=== PATIENT | male | born 1935 | race Caucasian/White ===

== ENCOUNTER 2025-06-16 18:18 | Inpatient (IN) ==
--- NOTE | 2025-06-16 18:47 | Emergency Department Note ---
Impression & Plan Sepsis, Common bile duct dilatation, Intrahepatic bile duct dilation, Transaminitis, Acidosis, lactic ED Provider Note NAME: SULAIMAN MAKI AGE: 89 SEX: M : 1935 ARRIVES VIA: Ambulance INFORMANT: Patient, EMS, family ED PROVIDER(S): Alvin Taylor DO CHIEF COMPLAINT: abdominal pain HPI: This is a 89-year-old male with the PMHx of HTN, HLD and cholecystectomy with ongoing "liver issues" and multiple admissions in [place] as well as the OR presenting to [facility] for further evaluation of abdominal pain. Patient is accompanied by EMS and family who provide additional history. EMS reported that he has issues with his liver. They report that his presentation is similar. The patient also agrees with this. He was managed with the 100 mcg of IV fentanyl for pain control prior to arrival. He was reporting some improvement but still having intermittent nausea as well as abdominal pain. Patient reports significant chills but no documented fevers. Having episodes of shaking which seem to be rigors during interview. No cough or congestion. Denies chest pain or palpitations. No shortness of breath. They deny abdominal pain, nausea and vomiting. No urinary complaints. No recent changes in bowel movements. Patient denies recent changes in medications or OTC supplements. Patient offers no other complaints, today. ADDITIONAL HISTORY OBTAINED: Per HPI Chronic Medical/Social Conditions Affecting Care: Per HPI PAST MEDICAL HISTORY: See Below PAST SURGICAL HISTORY: See Below FAMILY HISTORY: See Below SOCIAL HISTORY: See Below HOME MEDICATIONS: See Below ALLERGIES: See Below VITALS: See Below PHYSICAL EXAMINATION: GENERAL: Sitting up in bed, alert, ill appearing, rigors present, well nourished, no distress, non-toxic EYE EXAM: normal conjunctiva. PERRL and EOM's grossly intact. OROPHARYNX: no exudate, no erythema, lips, buccal mucosa, and tongue normal and mucous membranes are dry NECK: supple, no nuchal rigidity, no adenopathy, non-tender LUNGS: Clear to auscultation. Normal chest wall mechanics HEART: no murmurs, tachycardic rate, regular rhythm ABDOMEN: abdomen soft, generalized TTP, most severe in the RUQ, no masses, no rebound or guarding. BACK: Back is symmetrical on inspection and there is no deformity, no midline tenderness, no CVA tenderness. SKIN: no rashes and no bruising UPPER EXTREMITIES: upper extremities are grossly normal. LOWER EXTREMITIES: No pitting edema. NEURO EXAM: Normal sensorium, GCS 15, normal speech, no gross weakness of arms, no gross weakness of legs. MEDICAL DECISION MAKING: Differential diagnoses includes but not limited to sepsis, bacteremia, hepatobiliary disease, cholangitis, liver cirrhosis, choledocholithiasis, obstructing nephrolithiasis, complicated UTI, viral URI, pneumonia, electrolyte derangements, SBP, kidney dysfunction In summary, this is a 89 year old male who presented with abdominal pain. Differential as above. Nursing notes and pertinent past medical records reviewed. Vital signs reviewed and the patient is tachycardic and tachypneic but otherwise afebrile and HDS. Concern for rigors on presentation. History and presentation revealed ongoing right upper quadrant abdominal pain in the setting of a cholecystectomy and ongoing liver issues per the patient and his family members. I did touch base with our ammunition officer to schedule work on obtaining records from the OR. Patient previously followed in [place] for initial hepatic issues. Did have a cholecystectomy. Patient states has had similar episodes in the past that were related to his liver issues. Physical examination revealed RUQ TTP but no evidence of AMS or jaundice. As a result of my initial evaluation, []. Will begin IV fluid resuscitation, broad-spectrum antibiotics and pain control. Patient was given initial dose of 4 mg of IV push morphine. I am concerned for sepsis given patient's vital signs and active rigors on physical examination. Will begin with a CT abdomen/pelvis but may benefit from right upper quadrant ultrasound for further characterization. Patient could have choledocholithiasis or cholangitis. He could have liver cirrhosis that we are unaware of. Patient does not appear jaundice. He does not have respiratory symptoms. No urinary symptoms. Find no findings of a soft tissue infection on physical examination. Unclear source at this time of possible sepsis but felt to be most likely hepatobiliary in nature. Diagnostics interpreted by me include EKG and cardiac monitoring as listed below: -Cardiac Monitoring: An order was placed for continuous cardiac monitoring. The monitor shows a rate of 90-120s with regular rhythm. -ECG: EKG independently interpreted by me reveals a narrow complex tachycardia in the 110 bpm. There is a poor baseline. Could be normal sinus but difficult to discern P waves. There are no significant ST segment changes to suggest STEMI. Patient completed laboratory studies and imaging. Results independently interpreted by me are transaminitis with elevated total bilirubin. Lipase was normal. No significant leukocytosis. Lactate is elevated but could be related to sepsis or poor clearance due to liver dysfunction. Some blood on UA but no bacteruria to suspect complicated UTI. The patient was managed with 1 L of IV fluid resuscitation as well as initially ordered cefepime. Given further concerns for possible hepatobiliary pathology as a source of possible sepsis, I did choose to provide anaerobic coverage and transition the patient from cefepime to Zosyn. CT abdomen/pelvis independently turbid by me reveals common bile duct dilatation with minimal intrahepatic ductal dilatation. RUQ was ordered. Discussed with GI Dr. Draper at 2140 and recommended MRCP and consult tomorrow. On reevaluation, the pain is improved. The patient is sleeping peacefully. He is still tachypneic and tachycardic. I continued IV fluid resuscitation with a second 1 L bolus of Plasma-Lyte. Ultimately, the decision was made to admit the patient for sepsis 2/2 likely hepatobiliary source. I discussed the case with the hospitalist service via telephone/T[employer] and they are agreeable to admit the patient to their services. Based on the above, including the patient's age, coexisting illnesses, labs, imaging, and exam findings the decision to treat as an inpatient. I discussed the patient with the hospitalist team who recommended admission to their services. They received the medications, treatments, interventions indicated above and their condition remained guarded. I discussed my findings with the patient and their family and they understand and agree with the treatment plan. All patient / family questions were answered to their satisfaction. Consults/Care Managements Discussions: Per MDM ER treatment provided: See above Procedures:none Critical Care: None The chart was completed utilizing [employer] voice recognition software. Grammatical errors, random word insertions, pronoun errors, and incomplete sentences are an occasional consequence of this system due to software limitations, ambient noise, and hardware issues. Any formal questions or concerns about the content, text, or information contained within the body of this dictation should be directly addressed to the physician for clarification. Past Med/Surg History Problem List (Updated 06/17/25 @ 17:18 by Alvin Taylor DO) Acidosis, lactic (Acute) Transaminitis (Acute) Intrahepatic bile duct dilation (Acute) Common bile duct dilatation (Acute) Sepsis (Acute) Medical History (Updated 06/17/25 @ 17:18 by Alvin Taylor DO) Encounter for pre-operative examination Common bile duct dilation Transaminitis Dehydration Hypoxia Social History Smoking Status: Never smoker Hx Alcohol Use: No Hx Substance Use: No Preferred Language: Estonian Communication Ability: Effective Improvement Manager Required: No Beliefs That Will Affect Care: None Current Living Situation: Spouse Feels Safe at Home: Yes Safety Concerns: Feels Safe At This Time Assistive Devices: Walker Assistive Devices Comment: braces for both legs, shower chair Allergies Allergies Allergy/AdvReac Type Severity Reaction Status Date / Time No Known Allergies Allergy Unverified 06/17/25 00:31 Home Meds Home Medications Medication Instructions Recorded Confirmed atorvastatin 10 mg tablet 10 mg PO DAILY 06/16/25 06/16/25 olmesartan 20 mg tablet 20 mg PO DAILY 06/16/25 06/16/25 Results & Data (ED) Vital Signs Vital Signs - 24 hr 06/16/25 18:06 06/16/25 18:28 06/16/25 18:28 Temperature 36.6 C Temperature Source Oral Pulse Rate 112 H 112 H 109 H Pulse Rate [Left Finger] Pulse Rate from SpO2 Sensor Pulse Rhythm [Left Finger] Pulse Strength [Left Finger] Respiratory Rate 20 20 Respiratory Effort / Characteristics Respiratory Depth Respiratory Pattern Blood Pressure 109/74 Blood Pressure [Left Arm] Blood Pressure Mean 85 Blood Pressure Mean [Left Arm] Blood Pressure Position Lying Blood Pressure Position [Left Arm] Pulse Oximetry 95 90 Oxygen Delivery Method Room Air Room Air Oxygen Flow Rate Sepsis Recent Fever Within 48 Hours Yes Sepsis New/Unexplained Change in Mental Status N/A Sepsis Action Taken by Nursing No Action Required 06/16/25 18:30 06/16/25 18:30 06/16/25 18:30 Temperature Temperature Source Pulse Rate Pulse Rate [Left Finger] Pulse Rate from SpO2 Sensor Pulse Rhythm [Left Finger] Pulse Strength [Left Finger] Respiratory Rate Respiratory Effort / Characteristics Respiratory Depth Respiratory Pattern Blood Pressure 115/72 115/72 115/72 Blood Pressure [Left Arm] Blood Pressure Mean 91 91 91 Blood Pressure Mean [Left Arm] Blood Pressure Position Blood Pressure Position [Left Arm] Pulse Oximetry Oxygen Delivery Method Oxygen Flow Rate Sepsis Recent Fever Within 48 Hours Sepsis New/Unexplained Change in Mental Status Sepsis Action Taken by Nursing 06/16/25 18:39 06/16/25 18:42 06/16/25 18:54 Temperature Temperature Source Pulse Rate 114 H 117 H 119 H Pulse Rate [Left Finger] Pulse Rate from SpO2 Sensor 117 H 118 H Pulse Rhythm [Left Finger] Pulse Strength [Left Finger] Respiratory Rate 19 24 27 H Respiratory Effort / Characteristics Respiratory Depth Respiratory Pattern Blood Pressure Blood Pressure [Left Arm] Blood Pressure Mean Blood Pressure Mean [Left Arm] Blood Pressure Position Blood Pressure Position [Left Arm] Pulse Oximetry 88 L 83 L Oxygen Delivery Method Oxygen Flow Rate Sepsis Recent Fever Within 48 Hours Sepsis New/Unexplained Change in Mental Status Sepsis Action Taken by Nursing 06/16/25 19:00 06/16/25 19:00 06/16/25 19:18 Temperature Temperature Source Pulse Rate 119 H Pulse Rate [Left Finger] Pulse Rate from SpO2 Sensor 117 H Pulse Rhythm [Left Finger] Pulse Strength [Left Finger] Respiratory Rate 24 Respiratory Effort / Characteristics Respiratory Depth Respiratory Pattern Blood Pressure 102/82 102/82 Blood Pressure [Left Arm] Blood Pressure Mean 88 88 Blood Pressure Mean [Left Arm] Blood Pressure Position Blood Pressure Position [Left Arm] Pulse Oximetry 90 Oxygen Delivery Method Oxygen Flow Rate Sepsis Recent Fever Within 48 Hours Sepsis New/Unexplained Change in Mental Status Sepsis Action Taken by Nursing 06/16/25 19:21 06/16/25 19:33 06/16/25 19:39 Temperature Temperature Source Pulse Rate 116 H 119 H Pulse Rate [Left Finger] Pulse Rate from SpO2 Sensor 119 H Pulse Rhythm [Left Finger] Pulse Strength [Left Finger] Respiratory Rate 23 Respiratory Effort / Characteristics Respiratory Depth Respiratory Pattern Blood Pressure 117/75 Blood Pressure [Left Arm] Blood Pressure Mean 86 Blood Pressure Mean [Left Arm] Blood Pressure Position Blood Pressure Position [Left Arm] Pulse Oximetry 91 Oxygen Delivery Method Oxygen Flow Rate Sepsis Recent Fever Within 48 Hours Sepsis New/Unexplained Change in Mental Status Sepsis Action Taken by Nursing 06/16/25 19:45 06/16/25 20:00 06/16/25 20:18 Temperature Temperature Source Pulse Rate 119 H 122 H Pulse Rate [Left Finger] Pulse Rate from SpO2 Sensor 125 H Pulse Rhythm [Left Finger] Pulse Strength [Left Finger] Respiratory Rate 33 H 22 Respiratory Effort / Characteristics Respiratory Depth Respiratory Pattern Blood Pressure 107/85 Blood Pressure [Left Arm] Blood Pressure Mean 94 Blood Pressure Mean [Left Arm] Blood Pressure Position Blood Pressure Position [Left Arm] Pulse Oximetry 90 Oxygen Delivery Method Oxygen Flow Rate Sepsis Recent Fever Within 48 Hours Sepsis New/Unexplained Change in Mental Status Sepsis Action Taken by Nursing 06/16/25 20:30 06/16/25 20:36 06/16/25 20:51 Temperature Temperature Source Pulse Rate 119 H 120 H Pulse Rate [Left Finger] Pulse Rate from SpO2 Sensor 120 H 119 H Pulse Rhythm [Left Finger] Pulse Strength [Left Finger] Respiratory Rate 19 22 Respiratory Effort / Characteristics Respiratory Depth Respiratory Pattern Blood Pressure 121/79 Blood Pressure [Left Arm] Blood Pressure Mean 92 Blood Pressure Mean [Left Arm] Blood Pressure Position Blood Pressure Position [Left Arm] Pulse Oximetry 91 94 Oxygen Delivery Method Oxygen Flow Rate Sepsis Recent Fever Within 48 Hours Sepsis New/Unexplained Change in Mental Status Sepsis Action Taken by Nursing 06/16/25 21:00 06/16/25 21:00 06/16/25 21:00 Temperature Temperature Source Pulse Rate 120 H Pulse Rate [Left Finger] Pulse Rate from SpO2 Sensor Pulse Rhythm [Left Finger] Pulse Strength [Left Finger] Respiratory Rate 20 Respiratory Effort / Characteristics Respiratory Depth Respiratory Pattern Blood Pressure 134/90 134/90 134/90 Blood Pressure [Left Arm] Blood Pressure Mean 104 104 104 Blood Pressure Mean [Left Arm] Blood Pressure Position Blood Pressure Position [Left Arm] Pulse Oximetry 94 Oxygen Delivery Method Oxygen Flow Rate Sepsis Recent Fever Within 48 Hours Sepsis New/Unexplained Change in Mental Status Sepsis Action Taken by Nursing 06/16/25 22:00 Temperature Temperature Source Oral Pulse Rate Pulse Rate [Left Finger] 110 H Pulse Rate from SpO2 Sensor Pulse Rhythm [Left Finger] Regular Pulse Strength [Left Finger] Normal Respiratory Rate 20 Respiratory Effort / Characteristics Non-Labored Spontaneous Respiratory Depth Normal Respiratory Pattern Regular Blood Pressure Blood Pressure [Left Arm] 144/80 H Blood Pressure Mean Blood Pressure Mean [Left Arm] 101 Blood Pressure Position Blood Pressure Position [Left Arm] Lying Pulse Oximetry 97 Oxygen Delivery Method Nasal Cannula Oxygen Flow Rate 2 Sepsis Recent Fever Within 48 Hours Sepsis New/Unexplained Change in Mental Status Sepsis Action Taken by Nursing Laboratory Data 06/17/25 04:24 06/17/25 04:24 Lab Results 06/16/25 06/16/25 06/16/25 Range/Units 18:20 19:10 19:50 WBC 6.88 (4.8-10.8) K/ul RBC 4.99 (4.70-6.10) M/uL Hgb 14.6 (14.0-18.0) g/dl Hct 45.0 (42.0-52.0) % MCV 90.2 (80.0-100.0) fL MCH 29.3 (25.0-34.0) pg MCHC 32.4 (32.0-36.0) g/dL RDW Std Deviation 42.8 (36.4-46.3) fL RDW Coeff of Balwinder 13.1 (11.5-14.5) % Plt Count 145 (130-400) K/uL MPV 9.6 (9.4-12.4) fL Immature Gran % (Auto) 0.3 % Neut % (Auto) 84.4 % Lymph % (Auto) 7.8 % [place] % (Auto) 6.8 % Eos % (Auto) 0.4 % Baso % (Auto) 0.3 % Neut # (Auto) 5.80 (1.40-6.50) K/uL Lymph # (Auto) 0.54 L (1.20-3.40) K/uL [place] # (Auto) 0.47 (0.11-0.59) K/uL Eos # (Auto) 0.03 (0.00-0.50) K/uL Baso # (Auto) 0.02 (0.00-0.20) K/uL Immature Gran # (Auto) 0.02 (0.01-0.20) K/uL RBC Morphology Unremarkable Sodium 138 (136-145) mmol/L Potassium 4.1 (3.5-5.1) mmol/L Chloride 107 (98-107) mmol/L Carbon Dioxide 26 (21-32) mmol/L Anion Gap 5 (3-11) BUN 20 (6-23) mg/dl Creatinine 0.93 (0.6-1.4) mg/dl Est Cr Clr Drug Dosing 58.5 ml/min eGFR 78.98 BUN/Creatinine Ratio 21.5 H (10-20) Glucose 137 H (70-99(Fasting)) mg/dl Lactate 3.9 H* (0.4-2.0) mmol/L Calcium 9.3 (8.6-10.3) mg/dl Total Bilirubin 1.9 H (0.2-1.0) mg/dl AST 613 H (13-39) U/L ALT 362 H (7-52) U/L Alkaline Phosphatase 153 H (34-104) U/L Troponin I High Sens 6.2 (0-20) pg/ml Total Protein 5.9 L (6.0-8.3) gm/dl Albumin 3.6 (3.4-5.0) gm/dl Globulin 2.3 L (2.5-4.0) gm/dl Albumin/Globulin Ratio 1.6 (0.9-2) Lipase 14 (11-82) U/L Procalcitonin 0.12 (0-0.5) ng/ml Urine Color Urine Appearance (Clear) Urine pH (4.5-7.5) Ur Specific Draper (1.000-1.030) Urine Protein (Negative) Urine Glucose (UA) (Negative) Urine Ketones (Negative) Urine Blood (Negative) Urine Nitrite (Negative) Urine Bilirubin (Negative) Urine Urobilinogen (Negative) Ur Leukocyte Esterase (Negative) Urine RBC (0-2) /hpf Urine WBC (0-5) /hpf Ur Epithelial Cells (0-2) /hpf Urine Bacteria (None Seen) Hyaline Casts (None Presnt) /lpf Urine Comment Anaplasma Smear See Comment Babesia Smear See Comment 06/16/25 Range/Units 22:05 WBC (4.8-10.8) K/ul RBC (4.70-6.10) M/uL Hgb (14.0-18.0) g/dl Hct (42.0-52.0) % MCV (80.0-100.0) fL MCH (25.0-34.0) pg MCHC (32.0-36.0) g/dL RDW Std Deviation (36.4-46.3) fL RDW Coeff of Balwinder (11.5-14.5) % Plt Count (130-400) K/uL MPV (9.4-12.4) fL Immature Gran % (Auto) % Neut % (Auto) % Lymph % (Auto) % [place] % (Auto) % Eos % (Auto) % Baso % (Auto) % Neut # (Auto) (1.40-6.50) K/uL Lymph # (Auto) (1.20-3.40) K/uL [place] # (Auto) (0.11-0.59) K/uL Eos # (Auto) (0.00-0.50) K/uL Baso # (Auto) (0.00-0.20) K/uL Immature Gran # (Auto) (0.01-0.20) K/uL RBC Morphology Sodium (136-145) mmol/L Potassium (3.5-5.1) mmol/L Chloride (98-107) mmol/L Carbon Dioxide (21-32) mmol/L Anion Gap (3-11) BUN (6-23) mg/dl Creatinine (0.6-1.4) mg/dl Est Cr Clr Drug Dosing ml/min eGFR BUN/Creatinine Ratio (10-20) Glucose (70-99(Fasting)) mg/dl Lactate 3.2 H* (0.4-2.0) mmol/L Calcium (8.6-10.3) mg/dl Total Bilirubin (0.2-1.0) mg/dl AST (13-39) U/L ALT (7-52) U/L Alkaline Phosphatase (34-104) U/L Troponin I High Sens (0-20) pg/ml Total Protein (6.0-8.3) gm/dl Albumin (3.4-5.0) gm/dl Globulin (2.5-4.0) gm/dl Albumin/Globulin Ratio (0.9-2) Lipase (11-82) U/L Procalcitonin (0-0.5) ng/ml Urine Color Yellow Urine Appearance Clear (Clear) Urine pH 6.0 (4.5-7.5) Ur Specific Draper 1.010 (1.000-1.030) Urine Protein Negative (Negative) Urine Glucose (UA) Negative (Negative) Urine Ketones Negative (Negative) Urine Blood 3+ H (Negative) Urine Nitrite Negative (Negative) Urine Bilirubin Negative (Negative) Urine Urobilinogen Negative (Negative) Ur Leukocyte Esterase Negative (Negative) Urine RBC 11-20 H (0-2) /hpf Urine WBC 0-5 (0-5) /hpf Ur Epithelial Cells 0-2 (0-2) /hpf Urine Bacteria None Seen (None Seen) Hyaline Casts Present A (None Presnt) /lpf Urine Comment Anaplasma Smear Babesia Smear Administered Medications Aspirin (Aspirin 81 Mg Ectab) 81 mg PO DAILY [facility] Stop: 07/17/25 08:59 Last Admin: 06/17/25 07:46 Dose: 81 mg Documented By: SELIN Lactated Ringer's (Lr) 1,000 mls @ 100 mls/hr IV .Q10H JACOBY Stop: 06/17/25 18:14 Last Admin: 06/17/25 07:49 Dose: 100 mls/hr Documented By: Infusion: 06/17/25 07:49 Dose: Infused Documented By: Admin: 06/17/25 00:35 Dose: 100 mls/hr Documented By: JONES Piperacillin Sod/Tazobactam Sod (Zosyn) 4.5 gm in 100 mls @ 25 mls/hr IV Q8H [facility]; Protocol Stop: 06/27/25 12:59 Last Infusion: 06/17/25 16:45 Dose: Infused Documented By: Admin: 06/17/25 12:42 Dose: 25 mls/hr Documented By: SELIN Losartan Potassium (Losartan Potassium 50 Mg Tab) 50 mg PO DAILY [facility] Stop: 07/17/25 08:59 Last Admin: 06/17/25 07:47 Dose: 50 mg Documented By: SELIN Discontinued Medications Sodium Chloride (Nss) 500 mls @ 999 mls/hr IV .Q31M STA Stop: 06/16/25 18:58 Last Infusion: 06/16/25 19:28 Dose: Infused Documented By: Admin: 06/16/25 18:53 Dose: 999 mls/hr Documented By: LUZ Cefepime HCl (Maxipime 2000mg) 2,000 mg in 20 mls @ 5 mls/min IV NOW STA; Protocol Stop: 06/16/25 19:33 Last Admin: 06/16/25 19:50 Dose: Not Given Documented By: LUZ Piperacillin Sod/Tazobactam Sod (Zosyn) 4.5 gm in 100 mls @ 200 mls/hr IV NOW ONE; Protocol Stop: 06/16/25 20:01 Last Infusion: 06/17/25 02:02 Dose: Infused Documented By: Admin: 06/16/25 19:52 Dose: 200 mls/hr Documented By: LUZ Parenteral Electrolytes (Plasma-Lyte A Ph 7.4) 1,000 mls @ 999 mls/hr IV .Q1H1M ONE Stop: 06/16/25 21:39 Last Infusion: 06/16/25 21:48 Dose: Infused Documented By: Admin: 06/16/25 20:53 Dose: 999 mls/hr Documented By: LUZ Piperacillin Sod/Tazobactam Sod (Zosyn) 4.5 gm in 100 mls @ 200 mls/hr IV ONE ONE; Protocol Stop: 06/17/25 07:44 Last Infusion: 06/17/25 08:17 Dose: Infused Documented By: Admin: 06/17/25 07:46 Dose: 200 mls/hr Documented By: SELIN Ioversol (Optiray 320 100ml) 93 ml IV ONCE ONE Stop: 06/16/25 19:29 Last Admin: 06/16/25 19:28 Dose: 93 ml Documented By: JAYSHREE Miscellaneous Information (Patient's Allergy Info Needs Entered) 1 each N/A Q30M STA Stop: 06/16/25 22:25 Last Admin: 06/17/25 01:12 Dose: Not Given Documented By: JONES Morphine Sulfate (Morphine Sulfate 4 Mg/Ml 1 Ml Carp\\Vial) 4 mg IV NOW STA Stop: 06/16/25 18:29 Last Admin: 06/16/25 18:53 Dose: 4 mg Documented By: LUZ Imaging Data Radiologist's Impression: Abdomen/Pelvis CT 06/16/25 18:47 EXAM: CT abd pelvis IV con only CLINICAL HISTORY: abd pain, rigors, history of liver issues, cholecy TECHNIQUE: Contrast-enhanced CT of the abdomen and pelvis was performed, with the following protocol: axial images with, and reconstructed coronal and sagittal images. Intravenous contrast was administered. One of the following dose reduction techniques was utilized for this exam: Automated exposure control, adjustment of the mA and/or kV according to patient size, and use of iterative reconstruction. COMPARISON: None. FINDINGS: Abdomen: Liver: Normal in size, shape, and density. No focal lesions, cysts, or masses were identified. Hepatic vasculature and biliary ducts are unremarkable. Gallbladder and Biliary System: The gallbladder is resected. The common bile duct appears mildly dilated measuring about 1.1 cm, along with mild intrahepatic biliary tree dilatation. If indicated, better assessment by MRCP is advised. Pancreas: Pancreatic head, body, and tail are visualized and appear normal in size and density. No pancreatic masses or calcifications were noted. The pancreatic duct is not dilated. Spleen: Normal in size, shape, and density. No splenic lesions or masses were identified. Appendix: The appendix is normal in size without kayode appendiceal fat stranding, and without an appendicolith. No evidence of appendiceal abscess or perforation. Kidneys and Adrenal Glands: Large cortical cyst arising from the upper pole of the left kidney measuring about 10.1 cm. A nonobstructive 9 mm stone seen in the hyperkinesis of the left kidney. Bilateral peripelvic cysts vs overfilling of both pelvic calyceal systems. Both kidneys are normal in size, shape, and position. Cortical thickness is within normal limits. Adrenal glands are unremarkable with no evidence of masses or hyperplasia. Pelvis: Urinary Bladder: Normal in contour and wall thickness. No intraluminal lesions identified. Prostate: Normal in size and contour. No focal lesions or masses identified. Seminal Vesicles: Normal in size and appearance. No abnormalities noted. Rectum and Sigmoid Colon: Normal wall thickness and no evidence of mass. Peritoneal and Retroperitoneal Structures: No free fluid or abnormal fluid collections were identified within the abdomen or pelvis. No lymphadenopathy was noted. Heavy atherosclerotic plaques in the abdominal aorta and its branches noted. Bowel: Large hiatal hernia with suggestion of organoaxial malrotation noted. Uncomplicated diverticular disease involving the large bowel more prominent in the sigmoid colon. No evidence of bowel obstruction or wall thickening. Bones and Soft Tissues: Degenerative changes of the lumbar spine noted. Total left hip replacement noted, causing a metallic artifact, degrading the assessment of the pelvic region. Generalized reduction of the bone density noted suggestive of osteopenia. No acute fractures or abnormal masses were identified. IMPRESSION: 1. The common bile duct appears mildly dilated measuring about 1.1 cm, along with mild intrahepatic biliary tree dilatation. If indicated, better assessment by MRCP is advised. 2. 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 3. Uncomplicated diverticular disease involving the large bowel more prominent in the sigmoid colon. 4. Nonobstructive stone and large cortical cyst in the left kidney. Bilateral peripelvic cysts noted. Electronically signed by Steve Melendez 06-16-2025 8:41 PM Liver Ultrasound 06/16/25 19:34 Exam(s): US LIVER EXAM: US Abdomen Limited, Right Upper Quadrant CLINICAL HISTORY: Reason for exam: h/o cholecytectomy, ?cholangitis, recurrent transa. TECHNIQUE: Real-time ultrasound of the right upper quadrant with image documentation. COMPARISON: No relevant prior studies available. FINDINGS: Liver: 16.2 cm. No mass lesion demonstrated. Potentially minimal intrahepatic biliary ductal dilatation. Gallbladder: Reported cholecystectomy. Common bile duct: No dilatation of the common bile duct Pancreas: Pancreas is obscured by bowel gas. Right kidney: 11.2 cm. Unremarkable as visualized. IMPRESSION: No acute findings in the right upper quadrant. Electronically signed by: Melonie Finn M.D. 06/16/25 22:06 PM Discharge Plan Visit Data Chief Complaint: Abdominal Pain Stated Complaint: AB PAIN ED Provider: Alvin Taylor Discharge Problem: Sepsis, Common bile duct dilatation, Intrahepatic bile duct dilation, Transaminitis, Acidosis, lactic Patient Disposition: Admitted As Inpatient Condition: Serious Discharge Instructions Interventions: ED Discharge Assessment Last Done: 06/16/25 23:38
[2025-06-16] MEDS: SODIUM CHLORIDE 0.9% 500 ML IV STA (18:53)
[2025-06-16] MEDS: MoRPHine SULFATE 4 MG/ML 1 ML CARP\\VIAL IV STA (18:53)
[2025-06-16 19:09] LABS: Hematocrit (blood only) 45.0 % (42.0-52.0); Hemoglobin 14.6 g/dl (14.0-18.0); Immature Granulocytes # (auto) 0.02 K/uL (0.01-0.20); Immature Granulocytes % (auto) 0.3 %; Mean Corpuscular Hemoglobin 29.3 pg (25.0-34.0); Mean Corpuscular Volume 90.2 fL (80.0-100.0); Platelet Count 145 K/uL (130-400); RDW Standard Deviation 42.8 fL (36.4-46.3); Red Blood Count 4.99 M/uL (4.70-6.10); White Blood Count 6.88 K/ul (4.8-10.8)
[2025-06-16 19:14] LABS: Alanine Aminotransferase 362.0 U/L (7-52); Albumin Globulin Ratio 1.6 (0.9-2); Alkaline Phosphatase 153.0 U/L (34-104); Anion Gap 5.0 (3-11); Bilirubin,Total 1.9 mg/dl (0.2-1.0); Blood Urea Nitrogen 20.0 mg/dl (6-23); Calcium 9.3 mg/dl (8.6-10.3); Carbon Dioxide 26.0 mmol/L (21-32); Chloride 107.0 mmol/L (98-107); Creatinine Clr Calc Pharmacy 58.5 ml/min; Globulin 2.3 gm/dl (2.5-4.0); Glucose 137.0 mg/dl (70-99(Fasting)); Lipase 14.0 U/L (11-82); Potassium 4.1 mmol/L (3.5-5.1); Sodium 138.0 mmol/L (136-145); Total Protein 5.9 gm/dl (6.0-8.3)
[2025-06-16] MEDS: OPTIRAY 320 100ml IV ONE (19:28)
[2025-06-16] MEDS: CEFEPIME 2000MG 2,000 MG/20 ML SYR IV STA (19:50)
[2025-06-16] MEDS: PIPERACILLIN/TAZOBACTAM 4.5 GM/100 ML BAG IV ONE (19:52)
--- NOTE | 2025-06-16 20:42 | CT Scan Report ---
EXAM: CT abd pelvis IV con only CLINICAL HISTORY: abd pain, rigors, history of liver issues, cholecy TECHNIQUE: Contrast-enhanced CT of the abdomen and pelvis was performed, with the following protocol: axial images with, and reconstructed coronal and sagittal images. Intravenous contrast was administered. One of the following dose reduction techniques was utilized for this exam: Automated exposure control, adjustment of the mA and/or kV according to patient size, and use of iterative reconstruction. COMPARISON: None. FINDINGS: Abdomen: Liver: Normal in size, shape, and density. No focal lesions, cysts, or masses were identified. Hepatic vasculature and biliary ducts are unremarkable. Gallbladder and Biliary System: The gallbladder is resected. The common bile duct appears mildly dilated measuring about 1.1 cm, along with mild intrahepatic biliary tree dilatation. If indicated, better assessment by MRCP is advised. Pancreas: Pancreatic head, body, and tail are visualized and appear normal in size and density. No pancreatic masses or calcifications were noted. The pancreatic duct is not dilated. Spleen: Normal in size, shape, and density. No splenic lesions or masses were identified. Appendix: The appendix is normal in size without kayode appendiceal fat stranding, and without an appendicolith. No evidence of appendiceal abscess or perforation. Kidneys and Adrenal Glands: Large cortical cyst arising from the upper pole of the left kidney measuring about 10.1 cm. A nonobstructive 9 mm stone seen in the hyperkinesis of the left kidney. Bilateral peripelvic cysts vs overfilling of both pelvic calyceal systems. Both kidneys are normal in size, shape, and position. Cortical thickness is within normal limits. Adrenal glands are unremarkable with no evidence of masses or hyperplasia. Pelvis: Urinary Bladder: Normal in contour and wall thickness. No intraluminal lesions identified. Prostate: Normal in size and contour. No focal lesions or masses identified. Seminal Vesicles: Normal in size and appearance. No abnormalities noted. Rectum and Sigmoid Colon: Normal wall thickness and no evidence of mass. Peritoneal and Retroperitoneal Structures: No free fluid or abnormal fluid collections were identified within the abdomen or pelvis. No lymphadenopathy was noted. Heavy atherosclerotic plaques in the abdominal aorta and its branches noted. Bowel: Large hiatal hernia with suggestion of organoaxial malrotation noted. Uncomplicated diverticular disease involving the large bowel more prominent in the sigmoid colon. No evidence of bowel obstruction or wall thickening. Bones and Soft Tissues: Degenerative changes of the lumbar spine noted. Total left hip replacement noted, causing a metallic artifact, degrading the assessment of the pelvic region. Generalized reduction of the bone density noted suggestive of osteopenia. No acute fractures or abnormal masses were identified. IMPRESSION: 1. The common bile duct appears mildly dilated measuring about 1.1 cm, along with mild intrahepatic biliary tree dilatation. If indicated, better assessment by MRCP is advised. 2. 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 3. Uncomplicated diverticular disease involving the large bowel more prominent in the sigmoid colon. 4. Nonobstructive stone and large cortical cyst in the left kidney. Bilateral peripelvic cysts noted. Electronically signed by Steve Melendez 06-16-2025 8:41 PM
[2025-06-16] MEDS: PLASMA-LYTE A 1,000 ML IV ONE (20:53)
--- NOTE | 2025-06-16 21:55 | History & Physical Report ---
Date of Service June 16, 2025 Assessment & Plan (1) Common bile duct dilation: (2) Transaminitis: (3) Hypoxia: (4) Dehydration: Plan Patient is an 89-year-old male that came in via EMS for right upper quadrant pain found to have significant transaminitis and bile duct dilation on AP CT. He also meets SIRS criteria with tachycardia (HR 122) and tachypnea (RR 33). He does have an elevated lactate of 3.9 however possibly due to poor clearance with liver dysfunction. MRCP is advised. Patient previously resided in [place] and has since transitioned care to the ME in [place] but unable to obtain records given a Tuesday evening. He states he does have a history of known liver issues and had a prior cholecystectomy. #bile duct dilation/transaminitis T. bili 1.9, AST 613, ALT 362, alk phos 153. Patient reports history of however unclear baseline. Abdomen/pelvis CT showed bile duct dilation of 1.1cm, MRCP advised. + SIRS criteria with tachycardia (HR 122) and tachypnea (RR 33). Lactate 3.9 -> 3.2 however likely due to poor clearance with liver dysfunction. - Given no leukocytosis, afebrile, prior cholecystectomy; will defer further antibiotic coverage. Did have Zosyn 4.5G IV x 1 in the ED which will provide him coverage throughout the night. Ordered acute hepatitis panel and Lyme screen on admission, could consider further workup including but not limited to primary sclerosing cholangitis, primary biliary sclerosis, hemochromatosis. Unclear as to if patient has had workup for this in the past. 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 - GI consulted - MRCP ordered - hold statin - repeat lactate with AM labs - received 500 ml NSS bolus and 1L plasmalyte bolus in ed - continue fluid resuscitation with LR @ 100 ml/hr Pain control with morphine as needed, avoid Tylenol Trend CBC and CMP #hypoxia - noted to be 83% on RA in ED. Suspect 2/2 IV opioid use in ED. Wean oxygen as tolerated Incentive spirometry #tachycardia - HR downtrending with IVF on admission. Patient denies any CP or cardiac hx. Troponin negative. Likely 2/2 dehydration. - EKG ordered - IVF as above - monitor on tele #HTNcontinue olmesartan #HLDcontinue baby aspirin. Holding statin with above #Hiatal herniahiatal hernia with organoaxial malrotation noted on AP CT. Follow-up in outpatient setting #Hx prostate cancers/p radiation, stable. VTE ppx: SCDs, low risk Dispo: PCU with tachycardia Unit secretaries working on obtaining old records for patient. Admission and Anticipated Discharge Date Admission Date: 06/16/25 History of Present Illness Chief Complaint: abd pain Primary Care Provider: NO PCP Patient is an 89-year-old male that came in via EMS for right upper quadrant pain found to have significant transaminitis and bile duct dilation on AP CT. He also meets SIRS criteria with tachycardia (HR 122) and tachypnea (RR 33). He does have an elevated lactate of 3.9 however possibly due to poor clearance with liver dysfunction. MRCP is advised. Patient previously resided in [place] and has since transitioned care to the ME in [place] but unable to obtain records given a Tuesday evening. He states he does have a history of known liver issues and had a prior cholecystectomy. Patient seen at bedside with his and daughter present. Patient stated he had a relatively normal movement morning and had 3 bowel movements since this morning that progressively got loose however denies color abnormalities or hematochezia. He has had a poor appetite today. Around noon he developed sudden onset right upper quadrant pain with nausea however no vomiting felt similar to his episodes that he has had in the past. Pain radiated to his shoulder blades. Patient travels to [place] every winter and follows with the ME in [place] when he is home. His most recent episode was last year in July in which he was admitted to the [facility] in [place] for several days due to transaminitis and to have an MRCP. He stated MRCP results were inconclusive and he was to have a repeat in several months however never obtained given he had no issues. He was told at this time that he had calcifications within his bile duct or possibly calcium however he does not specifically remember. He had weekly LFTs throughout the winter which downtrended however he is unsure of any exact numerical value. He had a cholecystectomy several years ago and denies any history of cirrhosis. He is unsure if he has ever had a hepatitis workup however was never told that he did. He denies any recent Tylenol use. He has been taking atorvastatin every few days whenever he thinks about it to finish his prescription which he was told he no longer needs. He denies any fevers, chills, chest pain, shortness of breath, urinary symptoms. He denies oxygen use at baseline. He did take all of his home medications today including baby aspirin, atorvastatin 10 mg p.o., olmesartan 20 Mg p.o. He wishes to be DNR/DNI. ED provider spoke with on-call GI specialist who recommended MRCP and will see patient in the morning. Home Medications Medication Instructions Recorded Confirmed Type atorvastatin 10 mg tablet 10 mg PO DAILY 06/16/25 06/16/25 History olmesartan 20 mg tablet 20 mg PO DAILY 06/16/25 06/16/25 History Past Med/Surg History Problem List (Updated 06/16/25 @ 22:54 by Delmy Ibrahim PA-C) Dehydration Hypoxia Transaminitis Common bile duct dilation Social History Smoking Status: Never smoker Feels Safe at Home: Yes Review of Systems Review of Systems: see HPI Physical Exam Physical Exam: The patient is awake, alert and oriented 3, well developed and well nourished, normocephalic and atraumatic, in no acute distress. Non-toxic appearing. HEENT- EOMI, mucous membranes moist. Hearing grossly intact. Heart-normal S1 and S2. No murmurs, rubs or gallops. Lungs-clear bilaterally, no respiratory distress, no accessory muscle use. Abdomen-normal bowel sounds and soft. No ascites noted. Non-tender. Extremities- no clubbing, cyanosis, or edema. Rheumatologic-normal range of motion. Psychiatric-normal affect. Results & Data Results & Data Vital Signs (Past 12 Hours) Vital Signs Temp Pulse Resp BP Pulse Ox O2 Del Method 06/16/25 21:00 120 H 20 134/90 94 06/16/25 21:00 134/90 06/16/25 21:00 134/90 06/16/25 20:51 120 H 22 94 06/16/25 20:36 119 H 19 91 06/16/25 20:30 121/79 06/16/25 20:18 122 H 22 06/16/25 20:00 107/85 06/16/25 19:45 119 H 33 H 90 06/16/25 19:39 119 H 23 91 06/16/25 19:33 117/75 06/16/25 19:21 116 H 06/16/25 19:18 119 H 24 90 06/16/25 19:00 102/82 06/16/25 19:00 102/82 06/16/25 18:54 119 H 27 H 06/16/25 18:42 117 H 24 83 L 06/16/25 18:39 114 H 19 88 L 06/16/25 18:30 115/72 06/16/25 18:30 115/72 06/16/25 18:30 115/72 06/16/25 18:28 109 H 06/16/25 18:28 112 H 20 90 Room Air 06/16/25 18:06 36.6 C 112 H 20 109/74 95 Room Air Laboratory Results Reviewed CBC, CMP, lactate, troponin, procalcitonin Diagnostic Findings reviewed abdomen pelvis CT Liver ultrasound pending Medications Administered EDNSS 500 mL bolus, Plasma-Lyte 1L bolus, morphine 4 Mg IV, Zosyn 4G IV ECG Additional Comments: ordered Code Status & VTE Plan Code Status dnr/dni VTE Prophylaxis Plan VTE Prophylaxis will be ordered: Yes Supervising Physician Co-Signing Physician Notes Attending addendum: I have physically seen this patient, have supervised the LEE's activities, and agree with the H&P unless as otherwise noted. Assessment and Plan: The patient is an 89-year-old male with past medical history including abnormal liver tests, hyperlipidemia and hypertension. He presents to the emergency department via EMS due to right upper quadrant pain. On laboratories he was found to have a significant early abnormal LFTs, and CT scan noted, bile duct enlargement up to 1.1 cm in size, and a large hiatal hernia. Radiology interpretations encouraged MRCP to be performed, which was ordered while in the ED. Patient reports that he is following with medical care with the [facility], has been seen we previously resided in [place], and he has been asked to sign a records release to see what, workup is had done in the past, but this is unable to be obtained on Tuesday evening. Abnormal LFTs- Total bilirubin 1.9, AST 613, ALT 362, and alkaline phosphatase 153 Patient has had some formal workup in the past, however, we do not have access that this evening Will attempt to get records from previous hospitals. If we are unable to obtain these records, then he will get a full abnormal liver test workup Will repeat laboratories in the a.m. Patient did receive Zosyn 4.5 g IV from the ED, however, unclear etiology of abnormal LFTs, and will hold on any further antibiotics. MRCP ordered Holding atorvastatin N.p.o. after midnight Consult gastroenterology, agrees with MRCP Status post NSS 500 mL bolus, and 1 L Plasma-Lyte in the ED Continue IV fluid resuscitation with LR at 100 mL/h x 1 L Pain control with morphine as noted Follow serial CBC with differential and chemistry profile Tachycardia- Heart rate was initially in the 120s- 130s, which did improve with continued IV fluid rehydration To be monitored on medical telemetry Hypertension-continue home losartan Hyperlipidemia- Continue aspirin, holding statin as noted above History of prostate cancer- History of radiation No urinary issues at this time Hiatal hernia- Noted as large hiatal hernia on CT scan Not having any significant reflux issues at this time May follow in the outpatient setting PG Care Time/CCT Total # of Minutes Spent Total Time Spent with Patient: Total time spent is greater than 50% in coordination of care (as documented) at patient's floor/unit and/or counseling patient: Coding Level of Care Code 89229 INT INP/OBS CARE 3/75MIN Diagnoses Common bile duct dilation K83.8 Transaminitis R74.01 Hypoxia R09.02 Dehydration E86.0
--- NOTE | 2025-06-16 22:07 | Ultrasound Report ---
Exam(s): US LIVER EXAM: US Abdomen Limited, Right Upper Quadrant CLINICAL HISTORY: Reason for exam: h/o cholecytectomy, ?cholangitis, recurrent transa. TECHNIQUE: Real-time ultrasound of the right upper quadrant with image documentation. COMPARISON: No relevant prior studies available. FINDINGS: Liver: 16.2 cm. No mass lesion demonstrated. Potentially minimal intrahepatic biliary ductal dilatation. Gallbladder: Reported cholecystectomy. Common bile duct: No dilatation of the common bile duct Pancreas: Pancreas is obscured by bowel gas. Right kidney: 11.2 cm. Unremarkable as visualized. IMPRESSION: No acute findings in the right upper quadrant. Electronically signed by: Melonie Finn M.D. 06/16/25 22:06 PM
[2025-06-16 22:27] LABS: Appearance Urine Clear (Clear); Glucose Urine UA Negative (Negative)
[2025-06-16 22:43] LABS: Epithelial Cell Urine 0-2 /hpf (0-2)
[2025-06-16 23:34] LABS: RBC Morphology Unremarkable
[2025-06-16 23:50] LABS: Hep B Surface Ag with confirm Negative (Negative)
[2025-06-16 23:55] LABS: Hep C Ab Rflx HepCQuant RNA Negative (Negative)
[2025-06-17] MEDS ORDERED: MoRPHine SULFATE 2 MG/ML CARP IV PRN (00:31)
[2025-06-17] MEDS ORDERED: ONDANSETRON INJ 2 MG/ML 2 ML VIAL IV PRN ×2 (00:31→18:09)
[2025-06-17] MEDS ORDERED: MoRPHine SULFATE 4 MG/ML 1 ML CARP\\VIAL IV PRN (00:31)
[2025-06-17] MEDS: LACTATED RINGER'S 1,000 ML IV SCH (00:35)
--- NOTE | 2025-06-17 03:16 | Magnetic Resonance Report ---
EXAM: MR MRCP CLINICAL HISTORY: bile duct dilation, elevated LFTs TECHNIQUE: Multiplanar/multisequence MRI of the abdomen was performed without use of gadolinium. 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 Common bile duct is mid dilated with bilobar mild to moderate intrahepatic biliary ductal dilatation secondary to a calculus of size 6.1mm seen in distal common bile duct. CBD- 7.6mm. CHD-6.3mm. LHD- 5.1mm RHD-6.5mm. Cystic duct is seen and is unremarkable. The liver is of normal signal intensity without evidence of a hepatic mass. The adrenal glands demonstrate no gross mass. The pancreas is unremarkable. Large left renal cortical cyst with thin septation of size 8x7.8cm. Bilateral mild perinephric fluid. Rest kidneys appear unremarkable. Bilateral minimal pleural effusion is noted. IMPRESSION: 1. Post cholecystectomy status. 2. Common bile duct is mid dilated with bilobar mild to moderate intrahepatic biliary ductal dilatation secondary to a calculus of size 6.1mm seen in distal common bile duct. 3. Large left renal cortical cyst with thin septation of size 8x7.8cm. Bilateral mild perinephric fluid. 4. Bilateral minimal pleural effusion. 5. Similar findings seen in CT study. Electronically signed by Jerrod Owusu 06-17-2025 03:15 AM
[2025-06-17 04:49] LABS: Hematocrit (blood only) 42.2 % (42.0-52.0); Hemoglobin 13.7 g/dl (14.0-18.0); Mean Corpuscular Hemoglobin 29.2 pg (25.0-34.0); Mean Corpuscular Volume 90.0 fL (80.0-100.0); Platelet Count 112 K/uL (130-400); RDW Standard Deviation 43.7 fL (36.4-46.3); Red Blood Count 4.69 M/uL (4.70-6.10); White Blood Count 11.84 K/ul (4.8-10.8)
[2025-06-17 05:16] LABS: Albumin Globulin Ratio 1.7 (0.9-2); Alkaline Phosphatase 152.0 U/L (34-104); Anion Gap 7.0 (3-11); Bilirubin,Total 2.7 mg/dl (0.2-1.0); Blood Urea Nitrogen 19.0 mg/dl (6-23); Calcium 8.9 mg/dl (8.6-10.3); Carbon Dioxide 25.0 mmol/L (21-32); Chloride 107.0 mmol/L (98-107); Creatinine Clr Calc Pharmacy 40.8 ml/min; Globulin 1.9 gm/dl (2.5-4.0); Glucose 147.0 mg/dl (70-99(Fasting)); Potassium 4.0 mmol/L (3.5-5.1); Sodium 139.0 mmol/L (136-145); Total Protein 5.2 gm/dl (6.0-8.3)
[2025-06-17 05:29] LABS: Alanine Aminotransferase 536.0 U/L (7-52)
[2025-06-17 05:44] LABS: Immature Granulocytes # (auto) 0.11 K/uL (0.01-0.20); Immature Granulocytes % (auto) 0.9 %; RBC Morphology Unremarkable
--- NOTE | 2025-06-17 07:01 | Communication Note ---
Date of Service: June 17, 2025 cbd stone, probable cholangitis, restart zosyn, keep npo, check inr
[2025-06-17] MEDS: PIPERACILLIN/TAZOBACTAM 4.5 GM/100 ML BAG IV ONE (07:46)
[2025-06-17] MEDS: ASPIRIN 81 MG ECTAB PO SCH (07:46)
[2025-06-17] MEDS: LOSARTAN POTASSIUM 50 MG TAB PO SCH (07:47)
--- NOTE | 2025-06-17 09:24 | Gastrointestinal Consultation ---
Date of Consultation June 17, 2025 Assessment & Plan (1) Common bile duct dilation: cbd stone, cholNGITIS.... ercp. Risk discussed informed consent obtained. (2) Transaminitis: Plan -Continue IV Zosyn -Continue to monitor LFTs -Continue to monitor temp & BP -Keep NPO & proceed with ERCP today; Indomethacin suppositories ordered to be given in pre-op prior to ERCP. History of Present Illness Reason for Consultation: bile duct dilation, transaminitis Attending Physician: Rashid Wayne MD History of Present Illness Patient is an 89 yo male that came in via EMS for RUQ pain. In the ED he was noted to have elevated LFTs and CBD dilation. He had an elevated lactate of 3.9 and repeat is 2.3. This morning, T bili is 2.7, AST 585, ALT 536, Alk phos 152. WBC count 11,840. BP 109/68. Zosyn was added this AM when LFTs were noted to be rising. He was previously living in [place], but had moved here and was receiving care in [place] at the OR. He lives at home with his . He notes that he was having loose bowel movements and poor appetite prior to the onset of his RUQ pain. He was having nausea but no vomiting. He has had previous episodes of transaminitis in the past and reportedly had an MRCP that was inconclusive. He was waiting for a repeat one in several months, but then ended up not pursuing this because he was feeling well. MRCP results as follows: FINDINGS: Post cholecystectomy status. Common bile duct is mid dilated with bilobar mild to moderate intrahepatic biliary ductal dilatation secondary to a calculus of size 6.1mm seen in distal common bile duct. CBD- 7.6mm. CHD-6.3mm. LHD- 5.1mm RHD-6.5mm. Cystic duct is seen and is unremarkable. Allergies Allergy/AdvReac Type Severity Reaction Status Date / Time No Known Allergies Allergy Unverified 06/17/25 00:31 Home Medications Medication Instructions Recorded Confirmed Type atorvastatin 10 mg tablet 10 mg PO DAILY 06/16/25 06/16/25 History olmesartan 20 mg tablet 20 mg PO DAILY 06/16/25 06/16/25 History Patient History Medical History (Updated 06/17/25 @ 17:28 by Rashid Wayne MD) Encounter for pre-operative examination Common bile duct dilation Transaminitis Dehydration Hypoxia Social History Smoking Status: Never smoker Hx Alcohol Use: No Hx Substance Use: No Preferred Language: Barbadian Communication Ability: Effective Boiler Riveter Required: No Beliefs That Will Affect Care: None Current Living Situation: Spouse Feels Safe at Home: Yes Safety Concerns: Feels Safe At This Time Assistive Devices: Walker Assistive Devices Comment: braces for both legs, shower chair Review of Systems Constitutional: no fever Respiratory: no cough and no dyspnea Cardiovascular: no chest pain Gastrointestinal: + abdominal pain Psychiatric: + problem reported Physical Exam Constitutional: well developed Respiratory: normal respiratory effort Cardiovascular: Rate/Rhythm: regular rate Gastrointestinal (Abdomen): Inspection/Auscultation: abdomen normal to inspection Percussion/Palpation: + abdomen tender and abdomen soft Psychiatric: Orientation: alert and oriented x 3 Results & Data Vital Signs (Past 12 Hours) Vital Signs Temp Pulse Pulse Resp BP BP Pulse Ox 06/17/25 08:24 36.9 C 76 16 109/68 96 06/17/25 03:50 36.6 C 96 H 16 94/61 L 96 06/17/25 00:15 112 H 06/17/25 00:05 06/17/25 00:05 36.9 C 112 H 16 95/62 L 92 06/16/25 23:38 113 H 18 108/77 93 06/16/25 22:29 112 H 06/16/25 22:00 110 H 20 144/80 H 97 O2 Del Method O2 Flow Rate 06/17/25 08:24 Room Air 06/17/25 03:50 Nasal Cannula 2 06/17/25 00:15 06/17/25 00:05 Nasal Cannula 2 06/17/25 00:05 Nasal Cannula 2 06/16/25 23:38 Nasal Cannula 2 06/16/25 22:29 06/16/25 22:00 Nasal Cannula 2 PG Care Time/CCT Total # of Minutes Spent Total Time Spent with Patient: Total time spent is greater than 50% in coordination of care (as documented) at patient's floor/unit and/or counseling patient: Coding Level of Care Code 08079 INT INP/OBS CARE 3/75MIN Diagnoses Common bile duct dilation K83.8 Transaminitis R74.01
[2025-06-17 09:34] LABS: INR 1.2 (0.9-1.1); Prothrombin Time 12.7 Seconds (9.0-12.0)
--- NOTE | 2025-06-17 10:12 | XRay Report ---
XR chest 1V portable CLINICAL HISTORY: pre-op COMPARISON STUDY: None FINDINGS: Heart size and pulmonary vasculature are normal. There is stranding opacity at the left maryan g base. No other consolidation or pleural effusion. No pneumothorax. IMPRESSION: Atelectasis versus early pneumonia left lung base. ACT 112: Negative or not required by law. Electronically signed by: Zane Cali M.D. 06/17/2025 10:10 AM
[2025-06-17] MEDS: PIPERACILLIN/TAZOBACTAM 4.5 GM/100 ML BAG IV SCH (12:42)
--- NOTE | 2025-06-17 16:05 | Anesthesiology Consultation ---
Date of Service June 17, 2025 Assessment & Plan (1) Encounter for pre-operative examination: Chart Review Chart Review: Acceptable Risk for Surgery and Patient NOT seen in Pre Admission Testing Consults Requested none History Surgery Operation Date: 06/17/25 07:50 Proposed Procedures p Endoscopic Retrograde Cholangiopancreatogram - Marcus Green MD Height/Weight Height: 5 ft 8 in Weight: 81.6 kg Allergies Allergy/AdvReac Type Severity Reaction Status Date / Time No Known Allergies Allergy Unverified 06/17/25 00:31 Medications Home Medications Medication Instructions Recorded Confirmed Last Taken atorvastatin 10 mg tablet 10 mg PO DAILY 06/16/25 06/16/25 Unknown olmesartan 20 mg tablet 20 mg PO DAILY 06/16/25 06/16/25 Unknown Active Medications Generic Name Dose Route Start Last Admin Trade Name Freq PRN Reason Stop Dose Admin Aspirin 81 mg 06/17/25 09:00 06/17/25 07:46 Aspirin 81 Mg Ectab PO 07/17/25 08:59 81 mg DAILY JACOBY Administration Lactated Ringer's 1,000 mls @ 100 mls/hr 06/16/25 22:15 06/17/25 07:49 Lr IV 06/17/25 18:14 100 mls/hr .Q10H JACOBY Administration Piperacillin Sod/Tazobactam Sod 4.5 gm in 100 mls @ 25 mls/hr 06/17/25 13:00 06/17/25 12:42 Zosyn IV 06/27/25 12:59 25 mls/hr Q8H JACOBY Administration Protocol Losartan Potassium 50 mg 06/17/25 09:00 06/17/25 07:47 Losartan Potassium 50 Mg Tab PO 07/17/25 08:59 50 mg DAILY JACOBY Administration Past Medical History Medical History (Updated 06/17/25 @ 16:08 by Jakob Oswald MD) Encounter for pre-operative examination Common bile duct dilation Transaminitis Dehydration Hypoxia Hospitalist note 06/16/25: Assessment & Plan (1) Common bile duct dilation: (2) Transaminitis: (3) Hypoxia: (4) Dehydration: Plan Patient is an 89-year-old male that came in via EMS for right upper quadrant pain found to have significant transaminitis and bile duct dilation on AP CT. He also meets SIRS criteria with tachycardia (HR 122) and tachypnea (RR 33). He does have an elevated lactate of 3.9 however possibly due to poor clearance with liver dysfunction. MRCP is advised. Patient previously resided in [place] and has since transitioned care to the [place] in [place] but unable to obtain records given a Tuesday evening. He states he does have a history of known liver issues and had a prior cholecystectomy. Social History Smoking Status: Never smoker Hx Alcohol Use: No Hx Substance Use: No Physical Exam Vital Signs Last Vital Signs Temp 37.5 C 06/17/25 12:23 Pulse 75 06/17/25 12:23 Resp 16 06/17/25 12:23 BP 108/69 06/17/25 12:23 Pulse Ox 95 06/17/25 12:23 O2 Del Method Nasal Cannula 06/17/25 12:23 O2 Flow Rate 2 06/17/25 12:23 Testing Laboratory Results 06/17/25 04:24 06/17/25 04:24 PT 12.7 Seconds (9.0-12.0) H 06/17/25 08:48 INR 1.2 (0.9-1.1) H 06/17/25 08:48 Urine Color Yellow 06/16/25 22:05 Urine Appearance Clear (Clear) 06/16/25 22:05 Urine pH 6.0 (4.5-7.5) 06/16/25 22:05 Ur Specific [place] 1.010 (1.000-1.030) 06/16/25 22:05 Urine Protein Negative (Negative) 06/16/25 22:05 Urine Glucose (UA) Negative (Negative) 06/16/25 22:05 Urine Ketones Negative (Negative) 06/16/25 22:05 Urine Nitrite Negative (Negative) 06/16/25 22:05 Ur Leukocyte Esterase Negative (Negative) 06/16/25 22:05 Urine RBC 11-20 /hpf (0-2) H 06/16/25 22:05 Urine WBC 0-5 /hpf (0-5) 06/16/25 22:05 Ur Epithelial Cells 0-2 /hpf (0-2) 06/16/25 22:05 Electrocardiogram Date: 06/16/25 HR 110. Accelerated junctional rhythm with retrograde conduction. RVH. Septal and lateral infarct. Chest X-Ray Date: 06/16/25 XR chest 1V portable CLINICAL HISTORY: pre-op COMPARISON STUDY: None FINDINGS: Heart size and pulmonary vasculature are normal. There is stranding opacity at the left lung base. No other consolidation or pleural effusion. No pneumothorax. IMPRESSION: Atelectasis versus early pneumonia left lung base.
--- NOTE | 2025-06-17 17:29 | Hospitalist Progress Note ---
Date of Service June 17, 2025 Assessment & Plan (1) Common bile duct dilation: Plan: Distal CBD stone seen on MRCP. He will undergo ERCP later today, June 17, for stone extraction. Appreciate GI consultation and recommendations. Continue Zosyn and n.p.o. status (2) Transaminitis: Plan: Liver function enzymes were elevated on admission. Serial labs. Will follow (3) Hypoxia: Plan: This appears to be a spurious reading in the ED. He is currently on room air and not hypoxic and chest x-ray reveals no pneumonia or CHF. (4) Dehydration: Plan: He may have been mildly volume depleted on admission. This has been corrected with IV fluids. (5) Essential hypertension: Plan: Stable. Continue current medical management Plan Hopeful discharge to home within the next day or 2 after ERCP is completed Admission and Anticipated Discharge Date Admission Date: June 16, 2025 Subjective Alert and oriented. is at the bedside. Appreciate GI consultation and recommendations. MRCP reveals a distal common bile duct stone. He will undergo ERCP procedure today, June 17. He is currently n.p.o. on IV fluids. Review of Systems 2 Review of Systems: Constitutionalno fever or chills ENTno blurred vision, no double vision, no epistaxis, no sore throat Respiratoryno cough, no wheezing, no shortness of breath Cardiacno palpitations, no chest pain, no syncope GIright upper quadrant pain from biliary colic prompted the ER visit. Some nausea. No vomiting, diarrhea, melena, hematochezia GUno urinary retention, no urinary incontinence, no dysuria, no hematuria Musculoskeletalno joint pain, no muscle tenderness Skinno bruising, no rashes, no pruritus Neurono isolated weakness, no paresthesia, no weakness Psychno depression, no anxiety Physical Exam 2 Physical Exam: General-alert and oriented x3, no fever, no chills HEENT-head atraumatic and normocephalic, pupils equal and reactive to light, extraocular muscles intact Neck-no lymphadenopathy or thyromegaly, trachea midline Chest-clear to auscultation. No rales, wheezing or rhonchi Cardiac-regular rate and rhythm, normal S1 and S2 Abdomen-normal bowel sounds, no hepatosplenomegaly Extremities-no cyanosis, clubbing, or edema Neuro-cranial nerves II through XII intact, motor and sensory function within normal limits, strength symmetrical, no focal deficits Psych-normal affect, normal mood Results & Data Results & Data Vital Signs (Past 12 Hours) Vital Signs Temp Pulse Resp BP Pulse Ox O2 Del Method O2 Flow Rate 06/17/25 16:30 37.5 C 70 16 115/74 95 Nasal Cannula 2 06/17/25 12:23 37.5 C 75 16 108/69 95 Nasal Cannula 2 06/17/25 08:24 36.9 C 76 16 109/68 96 Room Air Laboratory Results 06/17/25 04:24 06/17/25 04:24 PG Care Time/CCT Total # of Minutes Spent Total Time Spent with Patient: Total time spent is greater than 50% in coordination of care (as documented) at patient's floor/unit and/or counseling patient: Coding Level of Care Code 04164 SUB INP/OBS CARE 2/35MIN Diagnoses Common bile duct dilation K83.8 Transaminitis R74.01 Hypoxia R09.02 Dehydration E86.0 Essential hypertension I10
[2025-06-17] MEDS ORDERED: ROCURONIUM BROMIDE 10 MG/ML 5 ML VIAL IV ONE ×2 (17:59→18:35)
[2025-06-17] MEDS ORDERED: ATROPINE SULFATE 0.1 MG/ML 10ML SYR IV PRN (18:09)
[2025-06-17] MEDS ORDERED: INDOMETHACIN 50 MG SUPP PR ONE (18:16)
[2025-06-17] MEDS ORDERED: PROPOFOL IV EMULSION 10 MG/ML 20 ML VIAL IV ONE (18:35)
[2025-06-17] MEDS ORDERED: NEOSTIGMINE METHYLSULFATE 1 MG/ML 10ML VIAL ONE (18:35)
[2025-06-17] MEDS ORDERED: ONDANSETRON INJ 2 MG/ML 2 ML VIAL ONE (18:35)
[2025-06-17] MEDS ORDERED: LIDOCAINE 2% 2 ML VIAL/AMP(20MG/ML) INFIL ONE (18:35)
[2025-06-17] MEDS ORDERED: DEXAMETHASONE SOD INJ 4 MG/ML VIAL ONE (18:35)
[2025-06-17] MEDS ORDERED: GLYCOPYRROLATE 0.2 MG/ML VIAL ONE (18:35)
[2025-06-17] MEDS ORDERED: SUGAMMADEX SODIUM 200 MG/2 ML VIAL IV ONE (18:36)
--- NOTE | 2025-06-17 19:29 | Communication Note ---
Date of Service: June 17, 2025 ERCP Single common duct stone. Biliary sphincterotomy and stone extraction undertaken. Pancreatic duct not injected on purpose. Duct draining well opp osed. Clear liquids. Check LFTs lipase tomorrow. Carroll diet as tolerated. There was not obvious pus within the biliary tree. I will continue 24 hours of Zosyn and can be discontinued after this unless there is positive blood cultures.
[2025-06-17] MEDS: INDOMETHACIN 50 MG SUPP PR ONE (19:46)
--- NOTE | 2025-06-17 20:01 | Anesthesiology Progress Note ---
Date of Service June 17, 2025 Anesthesia Post Procedure Vital Signs Vital Signs: Temp Pulse Pulse Pulse Resp BP BP 06/17/25 19:45 37 C 69 24 06/17/25 19:35 82 12 06/17/25 19:25 85 18 06/17/25 19:16 36.2 C L 88 16 06/17/25 17:45 37 C 74 20 06/17/25 16:30 37.5 C 70 16 115/74 06/17/25 12:23 37.5 C 75 16 108/69 06/17/25 08:24 36.9 C 76 16 109/68 06/17/25 03:50 36.6 C 96 H 16 94/61 L 06/17/25 00:15 112 H 06/17/25 00:05 06/17/25 00:05 36.9 C 112 H 16 95/62 L 06/16/25 23:38 113 H 18 108/77 06/16/25 22:29 112 H 06/16/25 22:00 110 H 20 144/80 H 06/16/25 21:00 120 H 20 134/90 06/16/25 21:00 134/90 06/16/25 21:00 134/90 06/16/25 20:51 120 H 22 06/16/25 20:36 119 H 19 06/16/25 20:30 121/79 06/16/25 20:18 122 H 22 BP Pulse Ox O2 Del Method O2 Flow Rate 06/17/25 19:45 96/52 L 95 Room Air 06/17/25 19:35 105/71 97 Oxymask 5 06/17/25 19:25 115/77 97 Oxymask 5 06/17/25 19:16 169/66 H 96 Oxymask 5 06/17/25 17:45 112/69 94 Room Air 06/17/25 16:30 95 Nasal Cannula 2 06/17/25 12:23 95 Nasal Cannula 2 06/17/25 08:24 96 Room Air 06/17/25 03:50 96 Nasal Cannula 2 06/17/25 00:15 06/17/25 00:05 Nasal Cannula 2 06/17/25 00:05 92 Nasal Cannula 2 06/16/25 23:38 93 Nasal Cannula 2 06/16/25 22:29 06/16/25 22:00 97 Nasal Cannula 2 06/16/25 21:00 94 06/16/25 21:00 06/16/25 21:00 06/16/25 20:51 94 06/16/25 20:36 91 06/16/25 20:30 06/16/25 20:18 Transfer of Care Handoff Completed per policy Notes Mental Status: alert / awake / arousable Patient Amnestic to Procedure: Yes Nausea / Vomiting: adequately controlled Pain: adequately controlled Airway Patency, RR, SpO2: stable & adequate BP & HR: stable & adequate Hydration State: stable & adequate Anesthetic Complications: no major complications apparent
[2025-06-17] MEDS ORDERED: SODIUM CHLORIDE 0.65% NA SOLN 45 ML (OCEAN) PRN (20:14)
[2025-06-18 06:32] LABS: Anion Gap 7 (3-11); Blood Urea Nitrogen 25 mg/dl (6-23); Calcium 8.8 mg/dl (8.6-10.3); Carbon Dioxide 23 mmol/L (21-32); Chloride 107 mmol/L (98-107); Creatinine Clr Calc Pharmacy 45.3 ml/min; Glucose 148 mg/dl (70-99(Fasting)); Potassium 4.2 mmol/L (3.5-5.1); Sodium 137 mmol/L (136-145)
[2025-06-18 06:33] LABS: Alanine Aminotransferase 295 U/L (7-52); Albumin Globulin Ratio 1.5 (0.9-2); Alkaline Phosphatase 111 U/L (34-104); Bilirubin,Total 1.8 mg/dl (0.2-1.0); Globulin 2.0 gm/dl (2.5-4.0); Lipase < 3 U/L (11-82); Total Protein 5.0 gm/dl (6.0-8.3)
[2025-06-18 06:46] LABS: Hematocrit (blood only) 37.6 % (42.0-52.0); Hemoglobin 12.4 g/dl (14.0-18.0); Mean Corpuscular Hemoglobin 29.1 pg (25.0-34.0); Mean Corpuscular Volume 88.3 fL (80.0-100.0); Platelet Count 85 K/uL (130-400); RDW Standard Deviation 42.8 fL (36.4-46.3); Red Blood Count 4.26 M/uL (4.70-6.10); White Blood Count 5.99 K/ul (4.8-10.8)
--- NOTE | 2025-06-18 07:57 | Gastroenterology Progress Note ---
Date of Service June 18, 2025 Assessment & Plan (1) Cholangitis: Plan: Resolving cholangitis post ERCP and stone extraction. Can advance diet. Potential discharge tomorrow if cardiac issues remained stable. Continue antibiotics for now Admission and Anticipated Discharge Date Admission Date: June 16, 2025 Subjective Post ERCP. Single stone extracted from the bile duct. Though there was not willie pus in the bile system he did have an elevated white count and platelets decreased. This is consistent with cholangitis infection. Continue Zosyn for now. Patient states he feels much better. He is complaining of being hungry. Lipase is normal we can advance his diet. Some cardiac issues overnight to be addressed by the primary service Review of Systems Constitutional: Denies chest pain shortness of breath or abdominal pain at this time. Physical Exam Physical Exam: Benign abdominal exam, heart rate regular Results & Data Results & Data Vital Signs (Past 12 Hours) Vital Signs Temp Pulse Pulse Pulse Resp BP Pulse Ox 06/18/25 03:40 36.7 C 53 L 20 110/58 L 93 06/17/25 23:00 36.3 C L 61 18 120/70 94 06/17/25 22:03 62 06/17/25 21:45 36.7 C 78 16 118/73 95 06/17/25 20:45 67 18 121/79 93 06/17/25 20:30 06/17/25 20:15 68 18 120/67 95 06/17/25 20:00 37.2 C 68 18 97/59 L 90 O2 Del Method 06/18/25 03:40 Room Air 06/17/25 23:00 Room Air 06/17/25 22:03 06/17/25 21:45 Room Air 06/17/25 20:45 Room Air 06/17/25 20:30 Room Air 06/17/25 20:15 Room Air 06/17/25 20:00 Room Air PG Care Time/CCT Total # of Minutes Spent Total Time Spent with Patient: Total time spent is greater than 50% in coordination of care (as documented) at patient's floor/unit and/or counseling patient: Coding Level of Care Code 01762 SUB INP/OBS CARE 11/24MIN Diagnoses Cholangitis K83.09
--- NOTE | 2025-06-18 08:13 | Fluoroscopy Report ---
[place] ERCP biliary ductal CLINICAL HISTORY: ERCP COMPARISON STUDY: None FLUOROSCOPY TIME: 1 minute 46 seconds FLUOROSCOPY IMAGES: 3 EXPOSURE DOSE: 25 mGy FINDINGS: Endoscope is present at the upper abdomen. The common duct is cannulated with contrast inje cted. There is a filling defect consistent with stone on the initial images within the common bile du ct is no longer seen on the later images. IMPRESSION: Fluoroscopy for ERCP. ACT 112: Negative or not required by law. Electronically signed by: Zane Cali M.D. 06/18/2025 8:12 AM
--- NOTE | 2025-06-18 11:09 | Discharge Summary ---
Discharge Summary Date of Service June 18, 2025 Principal Dx & Hospital Course #1 = Principal Diagnosis (1) Common bile duct dilation: Distal CBD stone seen on MRCP. He underwent ERCP on June 17 with stone extraction by the GI service. Treated while hospitalized with intravenous Zosyn. He will continue with cephalexin for the next several days as an outpatient. He is allergic to amoxicillin. (2) Transaminitis: Liver function enzymes were elevated on admission. Now downtrending. Serial labs while hospitalized. (3) Hypoxia: This appears to be a spurious reading in the ED. He is currently on room air and not hypoxic and chest x-ray reveals no pneumonia or CHF. (4) Dehydration: He may have been mildly volume depleted on admission. This has been corrected with IV fluids. (5) Essential hypertension: Stable. 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 Asymptomatic. Twelve-lead EKG done this morning, June 18, reveals normal sinus rhythm with profound first-degree AV block. He is not taking any beta-blockers or calcium channel blockers. He may need a pacemaker in the near future and this was explained to him and family members at the bedside. He will return to the ED if he has any syncope symptoms Plan Home today, June 18, with Keflex for a few more days. Follow-up with PCP in [place] soon as possible. Admission HPI Per Admitting Provider Patient is an 89-year-old male that came in via EMS for right upper quadrant pain found to have significant transaminitis and bile duct dilation on AP CT. He also meets SIRS criteria with tachycardia (HR 122) and tachypnea (RR 33). He does have an elevated lactate of 3.9 however possibly due to poor clearance with liver dysfunction. MRCP is advised. Patient previously resided in [place] and has since transitioned care to the [facility] in [place] but unable to obtain records given a Tuesday evening. He states he does have a history of known liver issues and had a prior cholecystectomy. Patient seen at bedside with his and daughter present. Patient stated he had a relatively normal movement morning and had 3 bowel movements since this morning that progressively got loose however denies color abnormalities or hematochezia. He has had a poor appetite today. Around noon he developed sudden onset right upper quadrant pain with nausea however no vomiting felt similar to his episodes that he has had in the past. Pain radiated to his shoulder blades. Patient travels to [place] every winter and follows with the [facility] in [place] when he is home. His most recent episode was last year in July in which he was admitted to the [facility] in [place] for several days due to transaminitis and to have an MRCP. He stated MRCP results were inconclusive and he was to have a repeat in several months however never obtained given he had no issues. He was told at this time that he had calcifications within his bile duct or possibly calcium however he does not specifically remember. He had weekly LFTs throughout the winter which downtrended however he is unsure of any exact numerical value. He had a cholecystectomy several years ago and denies any history of cirrhosis. He is unsure if he has ever had a hepatitis workup however was never told that he did. He denies any recent Tylenol use. He has been taking atorvastatin every few days whenever he thinks about it to finish his prescription which he was told he no longer needs. He denies any fevers, chills, chest pain, shortness of breath, urinary symptoms. He denies oxygen use at baseline. He did take all of his home medications today including baby aspirin, atorvastatin 10 mg p.o., olmesartan 20 Mg p.o. He wishes to be DNR/DNI. ED provider spoke with on-call GI specialist who recommended MRCP and will see patient in the morning. Discharge Exam General-alert and oriented x3, no fever, no chills HEENT-head atraumatic and normocephalic, pupils equal and reactive to light, extraocular muscles intact Neck-no lymphadenopathy or thyromegaly, trachea midline Chest-clear to auscultation. No rales, wheezing or rhonchi Cardiac-regular rate and rhythm, normal S1 and S2 Abdomen-normal bowel sounds, no hepatosplenomegaly Extremities-no cyanosis, clubbing, or edema Neuro-cranial nerves II through XII intact, motor and sensory function within normal limits, strength symmetrical, no focal deficits Psych-normal affect, normal mood Discharge Plan Discharge Items Patient Disposition: Home - Self-Care Reason For Visit: SEPSIS, BILE DUCT DIALATION, ELEVATED LFTS Discharge Diagnosis: Biliary colic, common bile duct stone, transaminitis, Mobitz type I second-d egree AV block Condition on Discharge: Good Activity: Resume your previous activity Non-emergency contact: Primary Care Provider Call non-emergency contact if: your symptoms worsen Follow-up/Referrals: PCP,NO [Primary Care Provider] - Diet: Regular Addtl Attending Provider Instructions: Take cephalexin antibiotic 3 times daily for the next several days as directed. A prescription has been sent to your pharmacy at [facility] on [facility]. All of the medications remain the same. See primary care provider soon as possible upon return to [place] Pending Studies at Discharge: No Stand-Alone Forms: [facility] [employer], Smoking Cessation Medications and DC Order Prescriptions: New cephalexin 500 mg capsule 500 mg PO TID Qty: 12 0RF Continued atorvastatin 10 mg tablet 10 mg PO DAILY olmesartan 20 mg tablet 20 mg PO DAILY Discharge Orders: Discharge Order (Routine); Ordered 06/18/25 Ordered By: Rashid Wayne Admission Data Admit Date/Time: 06/16/25 22:20 Attending Provider: Rashid Wayne Admit Provider: Kendell Madrid Primary Care Provider: PCP,NO Other Providers: Kendell Madrid; Lacey Schneider Hospital Stay Data Consultations 06/16/25 21:45 ED Decision to Admit Stat 06/17/25 00:31 Consult Gastroenterology Routine Procedures Performed Operation Date: 06/17/25 07:50 Actual Procedures p Endoscopic Retrograde Cholangiopancreatograpy In Operating Room(Not Applicabl e) - Marcus Green MD Diagnostic Imagining Performed 06/16/25 18:47 CT abd pelvis IV con only Stat 06/16/25 19:34 US liver Stat 06/16/25 22:11 MR MRCP Stat 06/17/25 15:30 [place] ERCP biliary ductal Routine Pending Results Patient Have Any Pending Studies at Discharge: No Discharge Instructions Given to Patient (Per Discharging Provider) Take cephalexin antibiotic 3 times daily for the next several days as directed. A prescription has been sent to your pharmacy at [facility] on [facility]. All of the medications remain the same. See primary care provider soon as possible upon return to [place] Total Time Total Time Spent Total Time Spent (In Minutes): 45 minutes Coding Level of Care Code 91942 INP/OBS DISCH >30 MIN Diagnoses Common bile duct dilation K83.8 Transaminitis R74.01 Hypoxia R09.02 Dehydration E86.0 Essential hypertension I10 Mobitz type 1 second degree AV block I44.1
[2025-06-18 12:40] VITALS: RESP 18; TEMP 97.9; O2SAT 94
[2025-06-18 13:43] VITALS: BP 115/74; PULSE 61
[2025-06-18 16:08] LABS: Hepatitis A Antibody IgM NON-REACTIVE (NON-REACTIVE); Hepatitis B Core Antibody IgM NON-REACTIVE (NON-REACTIVE)
--- NOTE | 2025-06-21 13:12 | Electrocardiogram Report ---
Test Reason : Blood Pressure : */* mmHG Vent. Rate : 110 BPM Atrial Rate : * BPM P-R Int : 300 ms QRS Dur : 86 ms QT Int : 314 ms P-R-T Axes : * 120 35 degrees QTcB Int : 424 ms Suspect sinus rhythm with 1st degree AV block Consider Right ventricular hypertrophy Septal infarct , age undetermined Lateral infarct , age undetermined Abnormal ECG No previous ECGs available Confirmed by Ton Monteiro ([id number]) on 06/21/2025 1:12:21 PM Referred By: REFERRED SELF Confirmed By: Ton Monteiro
--- NOTE | 2025-06-21 15:01 | Electrocardiogram Report ---
Test Reason : Blood Pressure : */* mmHG Vent. Rate : 42 BPM Atrial Rate : 59 BPM P-R Int : * ms QRS Dur : 88 ms QT Int : 544 ms P-R-T Axes : * 116 105 degrees QTcB Int : 454 ms Sinus bradycardia with 2nd degree A-V block (Mobitz I) Septal infarct (cited on or before 16-Jun-2025) Lateral infarct (cited on or before 16-Jun-2025) Abnormal ECG When compared with ECG of 16-Jun-2025 18:22, (unconfirmed) Vent. rate has decreased by 68 bpm Nonspecific T wave abnormality no longer evident in Inferior leads Confirmed by Ton Monteiro ([id number]) on 06/21/2025 3:00:29 PM Referred By: REFERRED SELF Confirmed By: Ton Monteiro
--- NOTE | 2025-06-21 15:05 | Electrocardiogram Report ---
Test Reason : Blood Pressure : */* mmHG Vent. Rate : 63 BPM Atrial Rate : 63 BPM P-R Int : 412 ms QRS Dur : 90 ms QT Int : 460 ms P-R-T Axes : * 69 74 degrees QTcB Int : 470 ms Sinus rhythm with 1st degree A-V block Low voltage QRS Borderline ECG When compared with ECG of 18-Jun-2025 04:34, (unconfirmed) Sinus rhythm is no longer with 2nd degree A-V block (Mobitz I) Vent. rate has increased by 21 bpm QRS axis Shifted left Criteria for Lateral infarct are no longer Present Confirmed by Ton Monteiro ([id number]) on 06/21/2025 3:04:33 PM Referred By: REFERRED SELF Confirmed By: Ton Monteiro
== END 2025-06-18 14:59 | disposition home or self-care (01) | DRG 445 ==
LOC: ED 18:18 → 4W 22:20 → SUATTDRO 22:20 → 4W 23:38